=== PATIENT | female | born 1995 | race Caucasian/White ===

== ENCOUNTER 2017-08-24 16:13 | Emergency (ER) | payer MEDICAID ==
[2017-08-24 16:30] VITALS: BP 129/56
--- NOTE | 2017-08-24 16:33 | EDM.PDOC ---
ED HPI GENERAL MEDICAL PROBLEM - General Chief Complaint: Abdominal Pain Stated Complaint: STOMACH PAINS, MOVING DOWN, DIZZY Time Seen by Provider: 08/24/17 16:33 Source of Information: Reports: Patient, Family, RN, RN Notes Reviewed History Limitations: Reports: Other (Developmental delay) - History of Present Illness INITIAL COMMENTS - FREE TEXT/NARRATIVE: Pt to ER with mother with c/o low abdominal pain/ pelvic pain, and incontinence of urine. Mom states the patient has been c/o this pain most of the day and last night. Mom denies fever, chills, N/V/D. Onset: Gradual Location: Reports: Abdomen Lower Suprapubic Pain Score (Numeric/FACES): 8 - Related Data Allergies Allergy/AdvReac Type Severity Reaction Status Date / Time Penicillins Allergy Cannot Verified 08/24/17 16:31 Remember quetiapine [From Seroquel] Allergy Cannot Verified 08/24/17 16:31 Remember Sulfa (Sulfonamide Allergy Cannot Verified 08/24/17 16:31 Antibiotics) Remember Home Meds: Home Meds FLUoxetine [PROzac] 20 mg PO DAILY 09/07/16 [History] Methylphenidate HCl [Methylphenidate ER] 36 mg PO DAILY 09/07/16 [History] risperiDONE [Risperdal] 1 tab PO DAILY 09/07/16 [History] Past Medical History HEENT History: Reports: None Psychiatric History: Reports: ADHD, Autism, Learning Disability Other Psychiatric History: oppositional defiant disorder, mild mental retardation - Infectious Disease History Infectious Disease History: Reports: None - Past Surgical History HEENT Surgical History: Reports: Myringotomy w Tube(s) Social & Family History - Family History Family Medical History: Noncontributory - Tobacco Use Smoking Status *Q: Never Smoker - Caffeine Use Caffeine Use: Reports: Soda - Recreational Drug Use Recreational Drug Use: No ED ROS GENERAL - Review of Systems Review Of Systems: ROS reveals no pertinent complaints other than HPI. ED EXAM, GI/ABD - Physical Exam Exam: See Below Exam Limited By: Other (Developmental delay) General Appearance: Alert, WD/WN, Moderate Distress Eyes: Bilateral: Normal Appearance Ears: Normal External Exam, Hearing Grossly Normal Nose: Normal Inspection Throat/Mouth: Normal Inspection, Normal Voice, No Airway Compromise Head: Atraumatic, Normocephalic Neck: Normal Inspection, Supple, Non-Tender, Full Range of Motion Respiratory/Chest: No Respiratory Distress, Lungs Clear, Normal Breath Sounds, No Accessory Muscle Use, Chest Non-Tender Cardiovascular: Normal Peripheral Pulses, Regular Rate, Rhythm, No Edema, No Gallop, No JVD, No Murmur, No Rub GI/Abdominal Exam: Normal Bowel Sounds, Soft, Tender (Female) Exam: Normal External Exam, Other (Clue cells were noted on UA. A pelvic exam was performed. Mom states she has never had a pelvic exam. Vaginal and cervical exam are grossly abnormal in structure.) Rectal (Female) Exam: Deferred Back Exam: Normal Inspection, Full Range of Motion Extremities: Normal Inspection, Normal Range of Motion, Non-Tender, No Pedal Edema, Normal Capillary Refill Neurological: Alert, Oriented, Normal Gait, Slow to Respond. No: Normal Cognition Psychiatric: Normal Affect, Normal Mood, Anxious (with pelvic exam) Skin Exam: Warm, Dry, Intact, Normal Color, No Rash Lymphatic: No Adenopathy Course - Vital Signs Last Recorded V/S: Last Vital Signs Temp 99 F 08/24/17 16:25 Pulse 82 08/24/17 16:25 Resp 18 08/24/17 16:25 BP 129/56 L 08/24/17 16:25 Pulse Ox 96 08/24/17 16:25 - Orders/Labs/Meds Labs: Laboratory Tests 08/24/17 08/24/17 08/24/17 Range/Units 16:43 16:43 16:48 WBC 10.6 H (5.0-10.0) 10^3/uL RBC 4.68 (4.2-5.4) 10^6/uL Hgb 14.1 (12.0-16.0) g/dL Hct 41.5 (37.0-47.0) % MCV 88.7 (80-100) fL MCH 30.1 (27.0-34.0) pg MCHC 34.0 (33.0-35.0) g/dL Plt Count 288 (150-450) 10^3/uL Neut % (Auto) 63.8 (42.2-75.2) % Lymph % (Auto) 28.6 (20.5-50.1) % Phillips % (Auto) 6.0 (2-8) % Eos % (Auto) 1.4 (1.0-3.0) % Baso % (Auto) 0.2 (0.0-1.0) % Sodium 135 (135-145) mmol/L Potassium 4.2 (3.6-5.0) mmol/L Chloride 99 L (101-111) mmol/L Carbon Dioxide 27.0 (21.0-31.0) mmol/L Anion Gap 13.2 BUN 9 (7-18) mg/dL Creatinine 0.5 L (0.6-1.3) mg/dL Est Cr Clr Drug Dosing TNP Estimated GFR (MDRD) > 60 BUN/Creatinine Ratio 18.00 Glucose 85 (74-105) mg/dL Calcium 9.2 (8.4-10.2) mg/dl Total Bilirubin 0.5 (0.2-1.0) mg/dL AST 17 (10-42) IU/L ALT 14 (10-60) IU/L Alkaline Phosphatase 101 (42-121) IU/L Total Protein 7.7 (6.7-8.2) g/dl Albumin 4.3 (3.2-5.5) g/dl Globulin 3.4 Albumin/Globulin Ratio 1.26 Urine Color (YELLOW) Urine Appearance (CLEAR) Urine pH (5.0-9.0) Ur Specific [place] (1.005-1.030) Urine Protein (NEGATIVE) Urine Glucose (UA) (NEGATIVE) Urine Ketones (NEGATIVE) Urine Occult Blood (NEGATIVE) Urine Nitrite (NEGATIVE) Urine Bilirubin (NEGATIVE) Urine Urobilinogen (0.2-1.0) mg/dL Ur Leukocyte Esterase (NEGATIVE) Urine RBC /HPF Urine WBC (0-5/HPF) /HPF Ur Epithelial Cells /HPF Amorphous Sediment (0/HPF) /HPF Urine Bacteria (0-FEW/HPF) /HPF Urine Mucus /LPF Urine HCG, Qual Urine Opiates Screen Negative (NEGATIVE) Ur Oxycodone Screen Negative (NEGATIVE) Urine Methadone Screen Negative (NEGATIVE) Ur Barbiturates Screen Negative (NEGATIVE) U Tricyclic Antidepress Negative (NEGATIVE) Ur Phencyclidine Scrn Negative (NEGATIVE) Ur Amphetamine Screen Negative (NEGATIVE) U Methamphetamines Scrn Negative (NEGATIVE) Urine MDMA Screen Negative (NEGATIVE) U Benzodiazepines Scrn Negative (NEGATIVE) Urine Cocaine Screen Negative (NEGATIVE) U Marijuana (THC) Screen Negative (NEGATIVE) Ethyl Alcohol 6 mg/dL Chlamydia/GC Source C.trachomatis RNA (TMA) (Negative) N.gonorrhoeae RNA (TMA) (Negative) 08/24/17 08/24/17 08/24/17 Range/Units 16:48 16:48 16:48 WBC (5.0-10.0) 10^3/uL RBC (4.2-5.4) 10^6/uL Hgb (12.0-16.0) g/dL Hct (37.0-47.0) % MCV (80-100) fL MCH (27.0-34.0) pg MCHC (33.0-35.0) g/dL Plt Count (150-450) 10^3/uL Neut % (Auto) (42.2-75.2) % Lymph % (Auto) (20.5-50.1) % Phillips % (Auto) (2-8) % Eos % (Auto) (1.0-3.0) % Baso % (Auto) (0.0-1.0) % Sodium (135-145) mmol/L Potassium (3.6-5.0) mmol/L Chloride (101-111) mmol/L Carbon Dioxide (21.0-31.0) mmol/L Anion Gap BUN (7-18) mg/dL Creatinine (0.6-1.3) mg/dL Est Cr Clr Drug Dosing Estimated GFR (MDRD) BUN/Creatinine Ratio Glucose (74-105) mg/dL Calcium (8.4-10.2) mg/dl Total Bilirubin (0.2-1.0) mg/dL AST (10-42) IU/L ALT (10-60) IU/L Alkaline Phosphatase (42-121) IU/L Total Protein (6.7-8.2) g/dl Albumin (3.2-5.5) g/dl Globulin Albumin/Globulin Ratio Urine Color Yellow (YELLOW) Urine Appearance Turbid (CLEAR) Urine pH 6.5 (5.0-9.0) Ur Specific [place] 1.020 (1.005-1.030) Urine Protein Negative (NEGATIVE) Urine Glucose (UA) Negative (NEGATIVE) Urine Ketones Negative (NEGATIVE) Urine Occult Blood Trace-intact H (NEGATIVE) Urine Nitrite Negative (NEGATIVE) Urine Bilirubin Negative (NEGATIVE) Urine Urobilinogen 0.2 (0.2-1.0) mg/dL Ur Leukocyte Esterase Small H (NEGATIVE) Urine RBC 5-10 H /HPF Urine WBC 10-20 H (0-5/HPF) /HPF Ur Epithelial Cells Moderate H /HPF Amorphous Sediment Few (0/HPF) /HPF Urine Bacteria Few (0-FEW/HPF) /HPF Urine Mucus Moderate H /LPF Urine HCG, Qual Negative Urine Opiates Screen (NEGATIVE) Ur Oxycodone Screen (NEGATIVE) Urine Methadone Screen (NEGATIVE) Ur Barbiturates Screen (NEGATIVE) U Tricyclic Antidepress (NEGATIVE) Ur Phencyclidine Scrn (NEGATIVE) Ur Amphetamine Screen (NEGATIVE) U Methamphetamines Scrn (NEGATIVE) Urine MDMA Screen (NEGATIVE) U Benzodiazepines Scrn (NEGATIVE) Urine Cocaine Screen (NEGATIVE) U Marijuana (THC) Screen (NEGATIVE) Ethyl Alcohol mg/dL Chlamydia/GC Source Urine C.trachomatis RNA (TMA) Negative (Negative) N.gonorrhoeae RNA (TMA) Negative (Negative) Departure - Departure Time of Disposition: 18:40 Disposition: Home, Self-Care 01 Condition: Fair Clinical Impression: Bacterial vaginosis Abdominal pain Qualifiers: Abdominal location: lower abdomen, unspecified Qualified Code(s): R10.30 - Lower abdominal pain, unspecified UTI (urinary tract infection) Qualifiers: Urinary tract infection type: acute cystitis Hematuria presence: with hematuria Qualified Code(s): N30.01 - Acute cystitis with hematuria - Discharge Information Instructions: Urinary Tract Infection, Adult, [id number], Bacterial Vaginosis , [id number], Abdominal Pain, Adult, [id number] Forms: ED Department Discharge Additional Instructions: RX: Macrobid, Flagyl Follow up with your primary care facility. Drink plenty of water.
[2017-08-24 17:09] LABS: ANION GAP 13.2; CHLORIDE,CL 99 mmol/L (101-111); SODIUM,NA 135 mmol/L (135-145)
== END 2017-08-24 18:52 | disposition home or self-care (01) ==
LOC: DL.ED 16:13
DX: N30.01 Acute cystitis with hematuria (principal); F90.9 Attention-deficit hyperactivity disorder, unspecified type; Z79.899 Other long term (current) drug therapy; Z88.0 Allergy status to penicillin; Z88.2 Allergy status to sulfonamides; Z88.8 Allergy status to other drugs, medicaments and biological substances
CPT/HCPCS: 36415; 80053; 80305; 81001; 81025; 85025; 87070; 87086; 87210; 87491; 87591; 99284; G0480; 87077; 87088; 87186

== ENCOUNTER 2021-01-07 13:04 | Emergency (ER) | payer MEDICAID ==
[2021-01-07 13:27] VITALS: BP 120/59; PULSE 84
[2021-01-07] MEDS ORDERED: diphenhydrAMINE 50 MG Cap PO ONE (13:44)
[2021-01-07] MEDS ORDERED: Famotidine 20 MG Tab PO ONE (13:45)
--- NOTE | 2021-01-07 14:53 | EDM.PDOC ---
ED HPI GENERAL MEDICAL PROBLEM - General Chief Complaint: Skin Complaint Stated Complaint: [id number] BROKE OUT IN HIVES Time Seen by Provider: 01/07/21 13:30 Source of Information: Reports: Patient, RN, RN Notes Reviewed History Limitations: Reports: No Limitations - History of Present Illness INITIAL COMMENTS - FREE TEXT/NARRATIVE: Patient is 25-year-old female who presents to the ER with complaint of hives. Patient states began yesterday. Denies any new soaps, lotions, foods. etc that she and mother can think of. This rash is all over her body. She reports it is very itchy. She has not taken anything for it. She used bug spray yesterday, has showered since then. Patient attends [facility] during the day. She has no history of envronmental allergies. ALLERGIES TO PENICILLIN, SULFA AND SEROQUEL. No itchy or scratchy throat, swelling of the tongue or shortness of breath, Onset Date: 01/06/21 Duration: Getting Worse Location: Reports: Generalized Quality: Reports: Ache Severity: Moderate Improves with: Reports: None Worsens with: Reports: None Associated Symptoms: Reports: No Other Symptoms - Related Data Allergies Allergy/AdvReac Type Severity Reaction Status Date / Time Penicillins Allergy Hives Verified 01/07/21 13:24 quetiapine [From Seroquel] Allergy Tremors Verified 01/07/21 13:24 Sulfa (Sulfonamide Allergy Hives Verified 01/07/21 13:24 Antibiotics) Home Meds: Home Meds FLUoxetine [PROzac] 20 mg PO DAILY 09/07/16 [History] Methylphenidate HCl [Methylphenidate ER] 36 mg PO DAILY 09/07/16 [History] risperiDONE [Risperdal] 1 tab PO DAILY 09/07/16 [History] Past Medical History HEENT History: Reports: None Cardiovascular History: Reports: None Respiratory History: Reports: None Gastrointestinal History: Reports: None Genitourinary History: Reports: None 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 Musculoskeletal History: Reports: None Neurological History: Reports: None Psychiatric History: Reports: ADHD, Autism, Developmental Delay, Learning Disability Other Psychiatric History: oppositional defiant disorder, mild mental retardation Endocrine/Metabolic History: Reports: None Hematologic History: Reports: None Immunologic History: Reports: None Oncologic (Cancer) History: Reports: None Dermatologic History: Reports: None - Infectious Disease History Infectious Disease History: Reports: None - Past Surgical History Head Surgeries/Procedures: Reports: None HEENT Surgical History: Reports: Myringotomy w Tube(s), Oral Surgery Social & Family History - Family History Family Medical History: No Pertinent Family History - Tobacco Use Tobacco Use Status *Q: Never Tobacco User - Caffeine Use Caffeine Use: Reports: Soda - Recreational Drug Use Recreational Drug Use: No ED ROS GENERAL - Review of Systems Review Of Systems: Comprehensive ROS is negative, except as noted in HPI. ED EXAM, SKIN/RASH Exam: See Below Exam Limited By: No Limitations General Appearance: Alert, WD/WN, No Apparent Distress Eye Exam: Bilateral Eye: EOMI, Normal Inspection, PERRL Ears: Normal External Exam, Normal Canal, Hearing Grossly Normal, Normal TMs Nose: Normal Inspection, Normal Mucosa, No Blood Throat/Mouth: Normal Inspection, Normal Lips, Normal Teeth, Normal Gums, Normal Oropharynx, Normal Voice, No Airway Compromise Head: Atraumatic, Normocephalic Neck: Normal Inspection, Supple, Non-Tender, Full Range of Motion Respiratory/Chest: No Respiratory Distress, Lungs Clear, Normal Breath Sounds, No Accessory Muscle Use, Chest Non-Tender Cardiovascular: Normal Peripheral Pulses, Regular Rate, Rhythm, No Edema, No Gallop, No JVD, No Murmur, No Rub GI/Abdominal: Normal Bowel Sounds, Soft, Non-Tender, No Organomegaly, No Distention, No Abnormal Bruit, No Mass (Female) Exam: Deferred Rectal (Female) Exam: Deferred Back Exam: Normal Inspection, Full Range of Motion, NT Extremities: Normal Inspection, Normal Range of Motion, Non-Tender, No Pedal Edema, Normal Capillary Refill Neurological: Alert, Oriented, CN II-XII Intact, Normal Cognition, Normal Gait, Normal Reflexes, No Motor/Sensory Deficits Psychiatric: Other (developmentally delayed) Skin: Other (hives all over body, urticaria. ) Course - Vital Signs Last Recorded V/S: Last Vital Signs Temp 98.0 F 01/07/21 13:25 Pulse 84 01/07/21 13:25 Resp 18 01/07/21 13:25 BP 120/59 L 01/07/21 13:25 Pulse Ox 99 01/07/21 13:25 - Orders/Labs/Meds Meds: Medications Discontinued Medications Generic Name Dose Route Start Last Admin Trade Name Aguilar PRN Reason Stop Dose Admin Diphenhydramine HCl 50 mg 01/07/21 13:44 01/07/21 13:52 Diphenhydramine 50 Mg Cap PO 01/07/21 13:45 50 mg ONETIME ONE Administration Famotidine 20 mg 01/07/21 13:45 01/07/21 13:52 Famotidine 20 Mg Tab PO 01/07/21 13:46 20 mg ONETIME ONE Administration - Re-Assessments/Exams Free Text/Narrative Re-Assessment/Exam: 01/07/21 17:55 Patient states improvement, less itching, less swelling to the area. Departure - Departure Time of Disposition: 14:51 Disposition: Home, Self-Care 01 Condition: Fair Clinical Impression: Full body hives, Urticaria - Discharge Information *PRESCRIPTION DRUG MONITORING PROGRAM REVIEWED*: No *COPY OF PRESCRIPTION DRUG MONITORING REPORT IN PATIENT KELLY: No Instructions: Contact Dermatitis, [id number], Hives, [id number] Referrals: PCP,None [Primary Care Provider] - Forms: ED Department Discharge Additional Instructions: Continue to use Benadryl [id number] as directed May use [id number] Benadryl lotion and calamine lotion Follow-up with your primary care provider if no improvement Return to the ER with any shortness of breath, swelling of the tongue, scratching or itching of the throat Sepsis Event Note (ED) - Evaluation Sepsis Screening Result: No Definite Risk - Focused Exam Vital Signs: Vital Signs Temp Pulse Resp BP Pulse Ox 01/07/21 13:25 98.0 F 84 18 120/59 L 99
== END 2021-01-07 14:57 | disposition home or self-care (01) ==
LOC: DL.ED 13:04
DX: L50.9 Urticaria, unspecified (principal); Z88.0 Allergy status to penicillin; Z88.2 Allergy status to sulfonamides; Z88.5 Allergy status to narcotic agent
CPT/HCPCS: 99282; A9270; Q0163; 99283

== ENCOUNTER 2021-12-17 12:17 | Emergency (ER) | payer SELFPAY ==
[2021-12-17 12:51] VITALS: BP 120/61; PULSE 80
[2021-12-17] MEDS ORDERED: Lidocaine 2% Viscous Solution 15 ML UD PO ONE (16:23)
== END 2021-12-17 16:36 | disposition home or self-care (01) ==
LOC: DL.ED 12:17
DX: K04.7 Periapical abscess without sinus (principal); K02.9 Dental caries, unspecified; Z79.899 Other long term (current) drug therapy; Z88.2 Allergy status to sulfonamides; Z88.0 Allergy status to penicillin; Z88.8 Allergy status to other drugs, medicaments and biological substances
CPT/HCPCS: 99282; A9270

== ENCOUNTER 2022-09-07 23:52 | Emergency (ER) | payer MEDICAID ==
[2022-09-08 00:03] VITALS: BP 142/80; PULSE 72
[2022-09-08] MEDS ORDERED: Lidocaine 2% Viscous Solution 15 ML UD PO ONE (00:05)
[2022-09-08] MEDS ORDERED: Clindamycin HCl 150 MG Cap PO ONE (00:09)
== END 2022-09-08 00:23 | disposition home or self-care (01) ==
LOC: DL.ED 23:52
DX: K04.7 Periapical abscess without sinus (principal); K02.9 Dental caries, unspecified; Z88.2 Allergy status to sulfonamides; Z88.8 Allergy status to other drugs, medicaments and biological substances; Z88.0 Allergy status to penicillin
CPT/HCPCS: 99282; A9270-GY

== ENCOUNTER 2023-04-10 21:36 | Emergency (ER) | payer SELFPAY ==
[2023-04-10 22:34] VITALS: BP 109/72; PULSE 70
== END 2023-04-10 22:38 | disposition home or self-care (01) ==
LOC: DL.ED 21:36
DX: S91.132A Puncture wound without foreign body of left great toe without damage to nail, initial encounter (principal); Z88.0 Allergy status to penicillin; Z88.8 Allergy status to other drugs, medicaments and biological substances; W26.0XXA Contact with knife, initial encounter
CPT/HCPCS: 99282

== ENCOUNTER 2024-04-24 13:38 | Emergency (ER) | payer MEDICAID ==
[2024-04-24 15:01] VITALS: BP 101/58; PULSE 63
== END 2024-04-24 17:45 ==
LOC: DL.ED 13:38
DX: Z53.21 Procedure and treatment not carried out due to patient leaving prior to being seen by health care provider (principal)

== ENCOUNTER 2024-11-11 18:31 | Emergency (ER) | payer SELFPAY ==
[2024-11-11 18:53] VITALS: BP 138/73; PULSE 83
[2024-11-11] MEDS: Mupirocin Oint 22 GM Tube TOP ONE (18:57)
== END 2024-11-11 19:06 | disposition home or self-care (01) ==
LOC: DL.ED 18:31
DX: L30.4 Erythema intertrigo (principal); Z88.0 Allergy status to penicillin; Z88.2 Allergy status to sulfonamides; Z88.8 Allergy status to other drugs, medicaments and biological substances; Z79.899 Other long term (current) drug therapy
CPT/HCPCS: 99282; A9270